=== PATIENT | female | born 1985 | race Caucasian/White ===

== ENCOUNTER 2022-01-07 22:43 | Emergency (ER) | payer OTHER ==
[~2022-01-07] VITALS: Ht 157.5 cm; Wt 70.3 kg
[~2022-01-07 22:43] MED LIST: FOLI1TAB90 PO; GABA300C1 PO; LIB25 PO; LORA-476 PO; THIA-34 PO
[2022-01-07 22:48] VITALS: BP 118/66
--- NOTE | 2022-01-07 22:49 | NUR ---
BIBA TAKEN TO BED #3
--- NOTE | 2022-01-07 22:50 | NUR ---
dr calderon at bedside examining pt
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
--- NOTE | 2022-01-07 23:15 | NUR ---
pt got out of bed and layed on floor. back to bed, is awake and answers questions. Pt admits to drinking alcohol [employer]
[2022-01-07] MEDS ORDERED: LORazepam 2 MG/ML VIAL IVP ONE (23:45)
[2022-01-07] MEDS ORDERED: NACL 0.9% 1,000 ML IV ONE (23:45)
[2022-01-08 00:01] LABS: BASOPHILS # (AUTO) 0.1 K/uL (0.00-0.22); BASOPHILS % (AUTO) 1.7 % (0.0-2.0); EOSINOPHILS # (AUTO) 0.1 K/uL (0-0.4); EOSINOPHILS % (AUTO) 2.2 % (0.0-4.0); HEMATOCRIT 38.2 % (36-48); HEMOGLOBIN 12.6 g/dL (12.0-16.0); LYMPHOCYTES # (AUTO) 1.7 K/uL (2.5-16.5); LYMPHOCYTES % (AUTO) 41.2 % (20.5-51.1); MEAN CORPUSCULAR HEMOGLOBIN 32 pg (27-31); MEAN CORPUSCULAR HGB CONC 33 g/dL (33-37); MEAN CORPUSCULAR VOLUME 97.8 fL (80-94); MONOCYTES # (AUTO) 0.7 K/uL (0.8-1.0); MONOCYTES % (AUTO) 16.4 % (1.7-9.3); NEUTROPHILS # (AUTO) 1.6 K/uL (1.8-7.7); NEUTROPHILS % (AUTO) 38.5 % (42.2-75.2); PLATELET COUNT (AUTO) 364 K/uL (140-450); RED CELL DISTRIBUTION WIDTH 15.3 % (11.6-13.7); WHITE BLOOD COUNT (AUTO) 4.2 K/uL (4.8-10.8)
[2022-01-08 00:55] LABS: ALBUMIN 3.2 g/dL (3.4-5.0); CARBON DIOXIDE 26.8 mmol/L (21-32); CREATININE 0.8 mg/dL (0.6-1.3); TOTAL BILIRUBIN 0.6 mg/dL (0.0-1.0)
[2022-01-08 00:58] LABS: POTASSIUM 2.8 mmol/L (3.5-5.1)
[2022-01-08] MEDS ORDERED: POTASSIUM CHLORIDE 10 MEQ TABER PO ONE ×2 (01:15→02:18)
[2022-01-08] MEDS ORDERED: ATI.5 PO (01:17)
--- NOTE | 2022-01-08 02:00 | NUR ---
RESTING IN BED WITH EYES CLOSED, RESPIRATIONS REGULAR AND UNLABORED
[2022-01-08 04:10] VITALS: BP 124/68
== END 2022-01-08 04:10 | disposition home or self-care (01) ==
LOC: MED 22:43
DX: F10.129 Alcohol abuse with intoxication, unspecified (principal); E87.6 Hypokalemia; Y90.9 Presence of alcohol in blood, level not specified; J45.909 Unspecified asthma, uncomplicated; Z72.89 Other problems related to lifestyle
CPT/HCPCS: 36415; 80053; 85025; 96361; 96374; 99283; G0482; J2060; J7030